=== PATIENT | female | born 1940 | race Caucasian/White ===

== ENCOUNTER 2019-06-01 | Emergency (ER) | payer MEDICARE ==
[2019-06-01 02:59] LABS: HEMATOCRIT 42.2 % (37.0-47.0); HEMOGLOBIN 12.9 g/dl (12.0-16.0); IMMATURE GRANULOCYTES 0.1 % (0.0-5.0); MEAN CELL VOLUME 99.1 fL CALC (80.0-100.0); MEAN CORPUSCULAR HGB 30.3 pG CALC (26.0-32.0); MEAN CORPUSCULAR HGB CONC 30.6 g/L CALC (32.0-36.0); NEUT# 5.67 thou/uL (2.00-7.15); RED BLOOD COUNT 4.26 mill/uL (4.20-5.60); RED CELL DISTRI WIDTH 15.1 % (11.5-15.5)
[2019-06-01 03:18] LABS: ACT PARTIAL THROMBO TIME 30.1 SECONDS (20.0-32.5); INTERNATIONAL NORMALIZED RATIO 1.9 RATIO (0.7-1.3); PROTHROMBIN TIME 19.4 SECONDS (9.0-12.5)
[2019-06-01 03:20] LABS: ALBUMIN 3.5 g/dL (3.2-5.0); ALKALINE PHOSPHATASE 130 u/l (38-126); ANION GAP 18 (6-22 (CALC)); BILIRUBIN, TOTAL 0.9 mg/dL (0.0-1.4); BUN 17 mg/dL (8-23); BUN/CREATININE RATIO 13 (12-20 (CALC)); CARBON DIOXIDE 18 mmol/l (22-30); CHLORIDE 102 mmol/l (95-108); CREATININE 1.3 mg/dL (0.5-1.0); GFR 40 ML/MIN (>=60 (CALC)); GFR FOR AFR.AMER. 48 ML/MIN (>=60 (CALC)); LIPASE 156 u/l (23-300); POTASSIUM 4.5 mmol/l (3.5-5.1); SGOT/AST 33 u/l (9-36); SODIUM 134 mmol/l (137-146); TOTAL PROTEIN 7.2 g/dL (6.3-8.2)
== END 2019-06-01 05:42 | disposition short-term general hospital (02) ==
DX: A41.9 Sepsis, unspecified organism (principal); I48.91 Unspecified atrial fibrillation; L40.1 Generalized pustular psoriasis; Z88.9 Allergy status to unspecified drugs, medicaments and biological substances